=== PATIENT | female | born 1935 | race Caucasian/White ===

== ENCOUNTER 2022-03-07 10:51 | Emergency (ER) | payer MEDICARE ==
[~2022-03-07 10:51] MED LIST: Iopamidol 300 61% 100 ML VIAL FS ONE
[2022-03-07 11:56] LABS: Bilirubin Neg (Negative); Blood, Urine 10 (Negative); Clarity Sl. Cloudy (Clear); Glucose, Urine (Dipstick) Normal (Negative); Ketone, Urine Negative (Negative); Leukocyte 25 (Negative); Nitrite Negative (Negative); Protein, Urine (Dipstick) 15 mg/dl (Neg-Trace); Urobilinogen Normal mg/dL (Less than 2)
[2022-03-07 12:05] LABS: Bacteria/HPF 3+ HPF (None Seen); Mucous/LPF 1+ LPF (<2+)
[2022-03-07 12:16] LABS: #Basophils 0.1 10x3/uL (0.0-0.2); #Eosinphils 0.5 10x3/uL (0.0-0.5); #Monocytes 0.5 10x3/uL (0.0-1.1); #Neutrophils 3.9 10x3/uL (1.5-8.4); %Basophils 1.1 % (0.0-2.0); %Eosinophils 8.1 % (0.0-6.0); %Lymphocytes 23.9 % (18.0-47.0); %Monocytes 7.7 % (0.0-10.0); Hemoglobin 13.3 g/dL (12.0-15.5); Mean Corpuscular HGB CONC 32.9 g/dL (32.0-36.0); Mean Corpuscular Hemoglobin 28.9 pg (27.0-33.0); Mean Corpuscular Volume 87.8 fl (81.6-98.3); Mean Platelet Volume 10.7 fl (7.4-10.4); Platelet Count 254 10x3/uL (150-450); RBC Distribution Width 13.5 % (11.5-14.5); White Blood Cell (WBC) Count 6.7 10x3/uL (3.5-10.5)
[2022-03-07 12:32] LABS: ALT (SGPT) 17 U/L (8-55); AST (SGOT) 23 U/L (5-34); Albumin 4.2 g/dL (3.4-4.8); Alkaline Phosphatase 87 U/L (40-110); Anion Gap 13 mmol/L (10-20); BUN (Urea Nitrogen) 15 mg/dL (9.8-20.1); Bilirubin, Total 0.5 mg/dL (0.2-1.2); Calc. Creatinine Clearance 0 mL/min (70-130); Carbon Dioxide 28 mmol/L (23-31); Chloride 103 mmol/L (98-107); Estimated GFR 57; Globulin 2.4 g/dL (2.4-3.5); Glucose 137 mg/dL (83-110); Lipase 27 U/L (8-78); Potassium 4.2 mmol/L (3.5-5.1); Protein, Total 6.6 g/dL (5.8-8.1); Sodium 140 mmol/L (136-145)
[2022-03-07 15:18] LABS: Bilirubin Neg (Negative); Blood, Urine Negative (Negative); Clarity Clear (Clear); Glucose, Urine (Dipstick) Normal (Negative); Ketone, Urine Negative (Negative); Leukocyte 25 (Negative); Nitrite Negative (Negative); Protein, Urine (Dipstick) Negative (Neg-Trace); Urobilinogen Normal mg/dL (Less than 2)
[2022-03-07 16:27] LABS: RBC/HPF 0-3 HPF (0-3)
[2022-03-07 16:28] LABS: Bacteria/HPF Rare-Few HPF (None Seen); Transitional Epithelial 0-3 HPF (None Seen)
== END 2022-03-07 16:51 | disposition home or self-care (01) ==
LOC: CSHERS 10:51
DX: R33.9 Retention of urine, unspecified (principal); Z79.899 Other long term (current) drug therapy; Z79.84 Long term (current) use of oral hypoglycemic drugs; E78.5 Hyperlipidemia, unspecified; I10 Essential (primary) hypertension; E11.9 Type 2 diabetes mellitus without complications; M19.90 Unspecified osteoarthritis, unspecified site
CPT/HCPCS: 51702; 74177; 80053; 81003; 81015; 83690; 85025; 87086

== ENCOUNTER 2022-11-14 08:51 | Inpatient (IN) | payer MEDICARE ==
[2022-11-14] MEDS ORDERED: Ondansetron PF 4 MG/2 ML Vial ONE (09:20)
[2022-11-14 09:24] LABS: #Basophils 0.1 10x3/uL (0.0-0.2); #Eosinphils 0.1 10x3/uL (0.0-0.5); #Monocytes 0.8 10x3/uL (0.0-1.1); #Neutrophils 14.6 10x3/uL (1.5-8.4); %Basophils 0.3 % (0.0-2.0); %Eosinophils 0.5 % (0.0-6.0); %Lymphocytes 10.4 % (18.0-47.0); %Monocytes 4.8 % (0.0-10.0); %Neutrophils 83.5 % (40.0-75.0); Hemoglobin 13.7 g/dL (12.0-15.5); Mean Corpuscular HGB CONC 32.9 g/dL (32.0-36.0); Mean Corpuscular Hemoglobin 28.8 pg (27.0-33.0); Mean Corpuscular Volume 87.8 fl (81.6-98.3); Mean Platelet Volume 10.6 fl (7.4-10.4); Platelet Count 247 10x3/uL (150-450); RBC Distribution Width 13.4 % (11.5-14.5); Red Blood Cell (RBC) Count 4.75 10x6/uL (3.90-5.03); White Blood Cell (WBC) Count 17.4 10x3/uL (3.5-10.5)
[2022-11-14 09:43] LABS: ALT (SGPT) 26 U/L (8-55); AST (SGOT) 24 U/L (5-34); Albumin 4.5 g/dL (3.4-4.8); Alkaline Phosphatase 98 U/L (40-110); Anion Gap 16 mmol/L (10-20); BUN (Urea Nitrogen) 17 mg/dL (9.8-20.1); Bilirubin, Total 0.6 mg/dL (0.2-1.2); CK (CPK) 53 U/L (29-168); Calc. Creatinine Clearance 0 mL/min (70-130); Calcium 9.9 mg/dL (7.8-10.44); Carbon Dioxide 23 mmol/L (23-31); Chloride 105 mmol/L (98-107); Estimated GFR 60; Globulin 2.3 g/dL (2.4-3.5); Glucose 168 mg/dL (83-110); Magnesium 1.7 mg/dL (1.6-2.6); Potassium 4.2 mmol/L (3.5-5.1); Protein, Total 6.8 g/dL (5.8-8.1); Sodium 140 mmol/L (136-145)
[2022-11-14] MEDS ORDERED: Acetaminophen/Codeine 30-300mg Tablet ONE (10:37)
[2022-11-14] MEDS ORDERED: Dextrose 5% in Water 1,000 ML IV PRN (10:46)
[2022-11-14] MEDS ORDERED: Glucagon 1 MG/ML KIT IM PRN (10:46)
[2022-11-14] MEDS ORDERED: Ondansetron PF 4 MG/2 ML Vial IVP PRN (10:46)
[2022-11-14] MEDS ORDERED: Acetaminophen 325 MG TAB PO PRN (10:46)
[2022-11-14] MEDS ORDERED: Senokot S 8.6-50 MG TAB PO PRN (10:46)
[2022-11-14] MEDS ORDERED: Dextrose 50% Abboject 50 ML SYRINGE SLOW IVP PRN (10:46)
[2022-11-14 12:16] LABS: Bilirubin Neg (Negative); Blood, Urine 10 (Negative); Clarity Slightly Cloudy (Clear); Glucose, Urine (Dipstick) Normal (Negative); Ketone, Urine Negative (Negative); Leukocyte 500 (Negative); Nitrite Positive (Negative); Protein, Urine (Dipstick) 30 mg/dl (Neg-Trace); Urobilinogen Normal mg/dL (Less than 2)
[2022-11-14 12:28] VITALS: BMI 26.8
[2022-11-14] MEDS: HYDROcodone/Acetaminophen 5/325 mg Tablet PO PRN (12:33)
[2022-11-14 12:53] LABS: Bacteria/HPF 3+ HPF (None Seen); CAUTI Indications for Culture Pelvic or flank pain; Squamous Epithelial 0-3 HPF (0-3); Transitional Epithelial 0-3 HPF (None Seen); WBC/HPF Greater than 50 HPF (0-3)
[2022-11-14 12:54] LABS: Urine Culture Reflex Yes Yes
[2022-11-14] MEDS: Gabapentin 300 MG CAP PO SCH ×2 (14:22→21:03)
[2022-11-14] MEDS: HumaLOG 300 UNITS/3 ML VIAL SC PRN (16:28)
[2022-11-14] MEDS: Atorvastatin Calcium 20 MG TAB PO SCH (21:04)
[2022-11-15 05:26] LABS: Anion Gap 13 mmol/L (10-20); BUN (Urea Nitrogen) 13 mg/dL (9.8-20.1); Calc. Creatinine Clearance 50 mL/min (70-130); Calcium 8.9 mg/dL (7.8-10.44); Carbon Dioxide 25 mmol/L (23-31); Chloride 105 mmol/L (98-107); Estimated GFR 63; Glucose 142 mg/dL (83-110); Potassium 3.9 mmol/L (3.5-5.1); Sodium 139 mmol/L (136-145)
[2022-11-15 05:36] LABS: #Basophils 0.1 10x3/uL (0.0-0.2); #Eosinphils 0.5 10x3/uL (0.0-0.5); #Monocytes 0.9 10x3/uL (0.0-1.1); #Neutrophils 4.8 10x3/uL (1.5-8.4); %Basophils 0.7 % (0.0-2.0); %Eosinophils 5.4 % (0.0-6.0); %Lymphocytes 30.8 % (18.0-47.0); %Monocytes 9.6 % (0.0-10.0); %Neutrophils 53.3 % (40.0-75.0); Hemoglobin 12.4 g/dL (12.0-15.5); Mean Corpuscular HGB CONC 32.3 g/dL (32.0-36.0); Mean Corpuscular Hemoglobin 28.7 pg (27.0-33.0); Mean Corpuscular Volume 88.9 fl (81.6-98.3); Mean Platelet Volume 11.3 fl (7.4-10.4); Platelet Count 226 10x3/uL (150-450); RBC Distribution Width 13.7 % (11.5-14.5); Red Blood Cell (RBC) Count 4.32 10x6/uL (3.90-5.03); White Blood Cell (WBC) Count 8.9 10x3/uL (3.5-10.5)
[2022-11-15] MEDS: Lactated Ringer's 1,000 ML IV SCH ×2 (06:12→17:29)
[2022-11-15] MEDS: Gabapentin 300 MG CAP PO SCH ×3 (10:02→22:45)
[2022-11-15] MEDS: Lisinopril 10 MG TAB PO SCH (10:03)
[2022-11-15] MEDS ORDERED: Neomycin-Polymyxin 1 ML AMP ONE (14:20)
[2022-11-15] MEDS ORDERED: CEFAZOLIN 2 GM VIAL ONE (15:05)
[2022-11-15] MEDS ORDERED: fentaNYL 50 mcg/mL 1 mL Vial ONE (15:07)
[2022-11-15] MEDS ORDERED: PROPOFOL 20 ML ONE (15:07)
[2022-11-15] MEDS ORDERED: Ondansetron PF 4 MG/2 ML Vial ONE (15:10)
[2022-11-15] MEDS ORDERED: Dexamethasone 20 MG/5 ML VIAL ONE (15:10)
[2022-11-15] MEDS ORDERED: Lidocaine 1% PF 5 ML VIAL ONE (15:10)
[2022-11-15] MEDS ORDERED: PHENYLEPHRINE-NS 100 MCG/ML 10 ML SYRINGE ONE (15:28)
[2022-11-15] MEDS ORDERED: Bupivacaine HCl 0.5%/Epinephrine 1:200,000/PF 30 ml Vial ONE (15:57)
[2022-11-15] MEDS: CEFAZOLIN 2 GM in Sodium Chloride 0.9% 100 ML IVPB SCH (22:41)
[2022-11-15] MEDS: Atorvastatin Calcium 20 MG TAB PO SCH (22:45)
[2022-11-15] MEDS: Aspirin 81 mg Enteric Coated Tablet PO SCH (22:45)
[2022-11-16] MEDS: Lactated Ringer's 1,000 ML IV SCH (02:45)
[2022-11-16] MEDS: CEFAZOLIN 2 GM in Sodium Chloride 0.9% 100 ML IVPB SCH (05:35)
[2022-11-16] MEDS: Gabapentin 300 MG CAP PO SCH ×3 (08:44→21:14)
[2022-11-16] MEDS: Lisinopril 10 MG TAB PO SCH (08:44)
[2022-11-16] MEDS: Aspirin 81 mg Enteric Coated Tablet PO SCH ×2 (08:48→21:14)
[2022-11-16] MEDS: cefTRIAXone\\ROCEPHIN 1 GM in Sodium Chloride 0.9% 100 ML IVPB SCH (10:00)
[2022-11-16] MEDS: HYDROcodone/Acetaminophen 5/325 mg Tablet PO PRN (10:22)
[2022-11-16] MEDS ORDERED: Polyethylene Glycol 3350 17 GM Packet PO PRN (10:47)
[2022-11-16] MEDS: HumaLOG 300 UNITS/3 ML VIAL SC PRN ×2 (13:28→18:13)
[2022-11-16] MEDS: Atorvastatin Calcium 20 MG TAB PO SCH (21:14)
[2022-11-17] MEDS: Lisinopril 10 MG TAB PO SCH (11:30)
[2022-11-17] MEDS: Gabapentin 300 MG CAP PO SCH ×3 (11:34→20:35)
[2022-11-17] MEDS: Aspirin 81 mg Enteric Coated Tablet PO SCH ×2 (11:35→20:36)
[2022-11-17] MEDS: HumaLOG 300 UNITS/3 ML VIAL SC PRN (11:38)
[2022-11-17] MEDS: cefTRIAXone\\ROCEPHIN 1 GM in Sodium Chloride 0.9% 100 ML IVPB SCH (11:41)
[2022-11-17] MEDS: Atorvastatin Calcium 20 MG TAB PO SCH (20:36)
[2022-11-18] MEDS: Gabapentin 300 MG CAP PO SCH ×3 (09:47→21:18)
[2022-11-18] MEDS: Aspirin 81 mg Enteric Coated Tablet PO SCH ×2 (09:47→21:18)
[2022-11-18] MEDS: Lisinopril 10 MG TAB PO SCH (09:47)
[2022-11-18] MEDS: cefTRIAXone\\ROCEPHIN 1 GM in Sodium Chloride 0.9% 100 ML IVPB SCH (09:49)
[2022-11-18] MEDS: HumaLOG 300 UNITS/3 ML VIAL SC PRN ×2 (11:59→21:23)
[2022-11-18] MEDS: Atorvastatin Calcium 20 MG TAB PO SCH (21:18)
[2022-11-19] MEDS: Gabapentin 300 MG CAP PO SCH ×2 (09:19→14:59)
[2022-11-19] MEDS: Lisinopril 10 MG TAB PO SCH (09:19)
[2022-11-19] MEDS: Aspirin 81 mg Enteric Coated Tablet PO SCH (09:19)
[2022-11-19] MEDS: cefTRIAXone\\ROCEPHIN 1 GM in Sodium Chloride 0.9% 100 ML IVPB SCH (09:22)
[2022-11-19] MEDS: HumaLOG 300 UNITS/3 ML VIAL SC PRN ×2 (11:51→17:06)
[2022-11-19 12:16] VITALS: TEMP 98.7
[2022-11-19 16:33] VITALS: BP 115/58
== END 2022-11-19 19:06 | DRG 481 ==
LOC: CSHERS 08:51 → CSHTELE 12:03
PROVIDERS: ADMIT Internal Medicine; ATTEND Family Medicine
PROC: 0QH634Z Insertion of Internal Fixation Device into Right Upper Femur, Percutaneous Approach (ICD-10-PCS; principal; 2022-11-15)
DX: S72.001A Fracture of unspecified part of neck of right femur, initial encounter for closed fracture (principal); N39.0 Urinary tract infection, site not specified; I10 Essential (primary) hypertension; E78.5 Hyperlipidemia, unspecified; E11.9 Type 2 diabetes mellitus without complications; F03.90 Unspecified dementia, unspecified severity, without behavioral disturbance, psychotic disturbance, mood disturbance, and anxiety; D72.829 Elevated white blood cell count, unspecified; R33.9 Retention of urine, unspecified; M54.9 Dorsalgia, unspecified; G89.29 Other chronic pain; Z90.49 Acquired absence of other specified parts of digestive tract; W19.XXXA Unspecified fall, initial encounter
CPT/HCPCS: 36415; 36416; 70450; 71045; 72125; 72170; 80048; 80053; 81001; 82550; 83735; 84484; 85025; 87077; 87086; 87186; 93005; 94760; 94762; 96374; C1713; C1769; J0696; J1100; J1650; J1815; J2405; J2704; J3010; J3490; J7120